=== PATIENT | female | born 1990 | race African-American/Black ===

== ENCOUNTER 2017-02-26 11:37 | Emergency (ER) | payer MEDICAID ==
[~2017-02-26] VITALS: Ht 170.2 cm; Wt 106.1 kg
[2017-02-26 11:37] VITALS: BP 111/71; PULSE 89; RESP 20; TEMP 99.6; O2SAT 100
--- NOTE | 2017-02-26 11:37 | NUR ---
Pt placed to ER bed 07 and triaged at bedside. Pt c/o abcess to sacrum x 4 weeks. S/P I&D at [facility] x 2 weeks ago. Pt states that abcess is coming back and pain is increasing in intensity. Pt denies drainage to site.
--- NOTE | 2017-02-26 11:50 | NUR ---
Dr. Messina at bedside to assess pt.
--- NOTE | 2017-02-26 12:30 | NUR ---
No needs verbalized at this time.
[2017-02-26 13:00] VITALS: BP 112/82; PULSE 92; RESP 20; TEMP 98.9; O2SAT 100
--- NOTE | 2017-02-26 13:00 | NUR ---
Patient given written and verbal discharge instructions and verbalizes understanding. ER MD discussed with patient the results and treatment provided. Patient in stable condition. ID arm band removed. Patient educated on pain management and to follow up with PMD. Pain Scale 02/14, Dr. Messina notified. Opportunity for questions provided and answered.
== END 2017-02-26 13:00 | disposition home or self-care (01) ==
LOC: SED 11:37
DX: L05.01 Pilonidal cyst with abscess (principal)
CPT/HCPCS: 99281